=== PATIENT | male | born 1985 ===

== ENCOUNTER 2024-12-25 11:44 | Inpatient (IN) | payer OTHER, SELFPAY ==
[2024-12-25 11:46] VITALS: BP 123/87; PULSE 86; RESP 20; TEMP 36.7; O2SAT 97; BMI 45.4
--- NOTE | 2024-12-25 11:47 | ED_ITS ---
HPI - General Adult General Chief complaint: Psychiatric Symptoms Stated complaint: Crisis SI brought in with CHD Time Seen by Provider: 12/25/24 12:30 Source: patient Mode of arrival: ambulatory Limitations: no limitations History of Present Illness ED Provider: LUCIA FRAGOSO PA-C HPI narrative: 39-year-old male presents to the ED today for evaluation of auditory hallucinations x4 days. States these voices are screaming at him, telling him to harm himself. He endorses suicidal ideation with plan to hang himself. He currently resides at a sober living home. He states that he has been looking around the home for areas where he can hang himself. He did not attempt to hang himself prior to evaluation in the ED today. No other attempts at harming himself prior to today's evaluation. He reports multiple inpatient admissions for similar in the past. He has never been evaluated at our facility for this. Denies any illicit substance use or alcohol consumption. He states he has been sober for 4 months now. Denies visual or tactile hallucinations. Denies HI. Denies any physical complaints at present. Related Data Home Medications ?Medication ?Instructions ?Recorded ?Confirmed Haldol 20 mg PO BEDTIME 12/25/24 12/25/24 chlorpromazine 100 mg tablet 100 mg PO QID 12/25/24 12/25/24 clonazepam 0.5 mg tablet (Klonopin) 0.5 mg PO BID 12/25/24 12/25/24 clonidine 0.1 mg PO BID PRN Anxiety 12/25/24 12/25/24 gabapentin 800 mg tablet 800 mg TID 12/25/24 12/25/24 haloperidol 10 mg PO QAM 12/25/24 12/25/24 trazodone 100 mg tablet 100 mg PO BEDTIME 12/25/24 12/25/24 buprenorphine 8 mg-naloxone 2 mg 1 film buccal BID 12/26/24 12/26/24 sublingual film (Suboxone) bupropion HCl 300 mg 24 hr tablet, 300 mg PO QAM 12/26/24 12/26/24 extended release (Wellbutrin XL) Allergies Allergy/AdvReac Type Severity Reaction Status Date / Time fish derived [fish] Allergy Unknown Verified 12/25/24 14:08 Review of Systems 2 Review of Systems: Yes all other systems are reviewed and are negative COUNTS INCLUDE 234 BEDS AT THE [facility] Past Medical History Attestation statement: The following information was validated with the patient. Source: old records reviewed and nursing notes reviewed Social History Social History Household Members: None Housing: Apartment Do you presently have visiting nurse or other home services: No Patient Tobacco Use Status: Current everyday Tobacco user Tobacco use type: Cigarette Cigarette Packs Per Day: 1.5 Cigarettes Per Day: 30.0 Smoked in Last 30 Days: Yes e-Cigarette/Vaping Use: Never Used Patient Interested in Nicotine Replacement: Yes Patient Given Instructions on How to Stop Smoking: Yes Date Education Initiated: 12/26/24 Second Hand Smoke Exposure: No Use of substances other than those prescribed or required for medical reasons: No Currently Displaying Signs/Symptoms of Drug Intoxication Withdrawal: No Have you been hit, kicked, punched, or otherwise hurt by someone within the past year? If so, by whom?: No Do you feel safe in your current relationship?: No Current Relationship Is there a partner from a previous relationship who is making you feel unsafe now?: No Advance Directives: No Advance Directives Information Provided: No Do you have thoughts of harming others: None Do you have a plan to hurt others: No Plan Recently lost weight without trying: No How much weight loss: Not applicable Eating poorly because of decreased appetite: No Nutrition screen score: 0 Nutrition Risks: No Nutritional Risk Poor oral hygiene: No service: No Sexual orientation: Don't Know Physical Exam ED Vital Signs: Vital Signs - 24 hr 12/26/24 06:17 Temperature 98.0 F Pulse Rate 50 Respiratory Rate 16 Blood Pressure 140/83 H Pulse Oximetry 100 Oxygen Delivery Method Room Air BMI result Body Mass Index 45.4 Vital signs stable General: well appearing, in no acute distress. Skin: Warm, dry, intact. No rashes or lesions. Head: Normocephalic, atraumatic. EENT: Hearing is intact b/l. Conjunctiva clear. constricted pupils bilaterally. EOM intact. Moist mucous membranes. Multiple missing teeth, dental caries Cardiac: Chest wall symmetric. RRR Lungs: Normal respiratory effort without accessory muscle use. CTA bilaterally Abdomen: Soft, non-tender, non-distended. No rebound tenderness or guarding Back: No midline spinous or paraspinal tenderness. No step off deformity. Ext: Upper and lower extremities atraumatic, without tenderness, deformity, swelling or erythema Neuro: AOx3. Normal speech. CN 2-12 grossly intact. Ambulating with steady gait Course Course Course Narrative: RME performed by Jennifer Balderas PA-C. Patient is a 39 year old assigned male at presenting to the emergency department with suicidal ideation. Patient states he has thoughts of harming himself and has attempted to do so over the last 4 days but none of them worked. Patient refuses to elaborate on attempts.. Detailed physical exam and review of systems are deferred to the experimental mechanic electrical. EKG and labs ordered. data entry specialist made aware of patient. Reevaluation(s) Reevaluation #1: 1445 -- CBC without leukocytosis or left shift. No anemia. H&H stable. Chemistry without acute electrolyte abnormality requiring intervention. No FAB. Liver function WNL. Urine without infection. Urine toxicology positive for Suboxone. Otherwise negative. Undetectable salicylates, acetaminophen ethanol. Negative COVID. EKG showing normal sinus rhythm, no acute ischemic changes or ST elevations. > patient is medically cleared at this time. Placed in physician observation pending care team and disposition. > requesting something for anxiety. 1 mg Ativan ordered. Reevaluation #2: 12/26/2024 DR. Chew's Progress note: AAO x3 care team input is appreciated, VSS, no issue overnight by nursing, bed search is underway. Time: 09:38 Reevaluation #3: Discontinue physician observation, admitted to psych. Time: 14:41 Medications Administered Generic Name Dose Route Start Last Admin Trade Name Wellington PRN Reason Stop Dose Admin Buprenorphine/Naloxone 1 film 12/26/24 17:00 12/28/24 08:36 Buprenorphine/Naloxone 8/2 Mg Film SUBLINGUAL 1 film BID@0900,1700 JOHN Administration Bupropion HCl 300 mg 12/26/24 09:00 12/28/24 08:36 Bupropion Hcl Xl 300 Mg Tab.Er.24h PO 300 mg DAILY JOHN Administration Chlorpromazine HCl 100 mg 12/25/24 21:00 12/28/24 08:36 Chlorpromazine Hcl 100 Mg Tablet PO 100 mg QID JOHN Administration Clonazepam 0.5 mg 12/26/24 17:00 12/28/24 08:36 Clonazepam 0.5 Mg Tablet PO 0.5 mg BID@0900,1700 JOHN Administration Gabapentin 800 mg 12/25/24 21:00 12/28/24 08:35 Gabapentin 400 Mg Capsule PO 800 mg TID JOHN Administration Haloperidol 20 mg 12/25/24 21:00 12/27/24 20:38 Haloperidol 5 Mg Tablet PO 20 mg BEDTIME JOHN Administration Haloperidol 10 mg 12/26/24 09:00 12/28/24 08:36 Haloperidol 5 Mg Tablet PO 10 mg DAILY JOHN Administration Trazodone HCl 100 mg 12/25/24 21:00 12/27/24 20:38 Trazodone Hcl 100 Mg Tablet PO 100 mg BEDTIME JOHN Administration Discontinued Medications Generic Name Dose Route Start Last Admin Trade Name Stuq PRN Reason Stop Dose Admin Buprenorphine/Naloxone 1 film 12/25/24 21:00 12/26/24 09:09 Buprenorphine/Naloxone 8/2 Mg Film SUBLINGUAL 1 film BID JOHN Administration Clonazepam 0.5 mg 12/25/24 21:00 12/26/24 09:10 Clonazepam 0.5 Mg Tablet PO 0.5 mg BID JOHN Administration Lorazepam 1 mg 12/25/24 13:16 12/25/24 13:28 Lorazepam 1 Mg Tablet PO 12/25/24 13:17 1 mg ONCE ONE Administration Nicotine Polacrilex 2 mg 12/26/24 10:46 12/26/24 10:54 Nicotine Polacrilex 2 Mg Gum BUCCAL 2 mg Q2H PRN Administration Nicotine Cravings Medical Decision Making Medical Decision Making [facility] Narrative: 39-year-old male presents to the ED today for evaluation of auditory hallucinations x4 days. Differential diagnosis includes anemia, electrolyte abnormality, mood disorder, anxiety, depression, SI, polysubstance abuse Presentation not consistent with acute organic causes to include delirium, dementia or drug induced disorders (acute ingestions or withdrawal; no evidence of toxidrome).? Given the H&P, I suspect this patient is suicidal and will require observation. Will consult care team to evaluate the patient. Will also obtain labs for medical clearance. Plan: labs, EKG, ASA/APAP levels, ETOH level, UDS, care team consultation, reassessment Differential Diagnosis Differential Diagnoses: The differential diagnosis associated with the presentation includes as above. Lab Data [facility] Lab Attestation statement: I reviewed the patient's lab results. As above 05/19/25 12:27 12/25/24 12:27 Labs: Lab Results 12/25/24 12/25/24 Range/Units 12:27 13:01 WBC 5.5 (4.8-10.8) X10*3/uL RBC 4.60 (4.60-5.80) X10*6/uL Hgb 14.7 (14.0-18.0) g/dl Hct 41.2 L (42.0-52.0) % MCV 89.6 (80.0-98.0) fL MCH 32.0 (27.0-33.0) pg MCHC 35.7 (31.0-36.0) g/dl RDW 11.9 (11.0-16.0) % Plt Count 141 L (160-400) X10*3/uL MPV 10.3 (9.4-12.4) fL Immature Gran % (Auto) 0.2 (0.0-0.4) % Neut % (Auto) 56.5 (45-73) % Lymph % (Auto) 29.4 (20-40) % [place] % (Auto) 9.9 (2-11) % Eos % (Auto) 3.1 (0-4) % Baso % (Auto) 0.9 (0-2) % Lymph # (Auto) 1.6 (1.2-4.9) X10*3/uL [place] # (Auto) 0.5 (0.1-1.2) X10*3/uL Eos # (Auto) 0.2 (0.0-0.4) X10*3/uL Baso # (Auto) 0.1 (0.0-0.2) X10*3/uL Abs Immat Gran (auto) 0.01 (0.00-0.03) X10*3/uL Absolute Neuts (auto) 3.1 (2.0-8.3) x10*3/uL Absolute Nucleated RBC 0.000 (0.0-0.012) X10*3/uL Nucleated RBC % (auto) 0.0 (0.0-0.2) /100WBC Sodium 134 L (135-145) mmol/L Potassium 4.6 (3.3-5.1) mmol/L Chloride 101 (96-108) mmol/L Carbon Dioxide 27 (22-29) mmol/L Anion Gap 11 L (12-20) BUN 8 L (9-16) mg/dL Creatinine 0.75 (0.5-1.4) mg/dL Estim Creat Clear Calc 156.2 Estimated GFR > 60 Random Glucose 94 (60-115) mg/dL Calcium 8.9 (8.4-10.2) mg/dL Total Bilirubin 0.4 (0.0-1.0) mg/dL AST 43 H (5-37) U/L ALT 37 (0-40) U/L Alkaline Phosphatase 69 (39-117) U/L Total Protein 6.5 (6.5-8.0) g/dL Albumin 3.8 (3.5-5.0) g/dL Urine Color Yellow Urine Appearance Clear Urine pH 7.0 (5.0-9.0) Ur Specific [place] <= 1.005 (1.005-1.025) Urine Protein Negative (Neg-Trace) mg/dL Urine Glucose (UA) Negative (Negative) mg/dL Urine Ketones Negative (Negative) mg/dL Urine Blood Negative (Negative) Urine Nitrite Negative (Negative) Ur Leukocyte Esterase Negative (Negative) Urine RBC 0-2 (0-2) /HPF Urine WBC 0-5 (0-5) /HPF Ur Squamous Epith Cells 0-2 (0-2) /HPF Urine Bacteria None Seen (None Seen) Hyaline Casts 0-2 (0-2) /LPF Salicylates < 5.0 L (15-30) mg/dL Urine Opiates Screen Not Detected (Not Detect) Ur Buprenorphine Scrn Positive H (Not Detect) ng/mL Ur Oxycodone Screen Not Detected (Not Detect) ng/mL Urine Methadone Screen Not Detected (Not Detect) ng/mL Urine Fentanyl Screen Not Detected (Not Detect) Acetaminophen < 3 (<30) mcg/mL Ur Barbiturates Screen Not Detected (Not Detect) Ur Phencyclidine Scrn Not Detected (Not Detect) Ur Amphetamines Screen Not Detected (Not Detect) U Benzodiazepines Scrn Not Detected (Not Detect) Urine Cocaine Screen Not Detected (Not Detect) U Marijuana (THC) Screen Not Detected (Not Detect) Ethyl Alcohol < 10 mg/dL COVID-19 (SIDRA) Invalid Negative (Negative) COVID-19 Clin Com See Note See Note Independent Interpretation I performed an independent interpretation of an: EKG Interpretation: EKG showing normal sinus rhythm, rate of 64 beats per minute, QT 404, QTC 416, no acute ischemic changes or ST elevations Chronic Conditions Patient?s care impacted by: Other Social Determinants Patient?s care significantly limited by Social Determinants of Health including: Alcoholism and drug addiction in family and Other Social Determinant of Health Critical Care Time Critical Care Time Critical Care Time: No Discharge Plan Discharge Clinical Impression: Suicidal ideation Patient Disposition: Admitted As Inpatient Interventions: Admission Worksheet (ED) Last Done: 12/26/24 14:58 Discharge Date/Time: 12/26/24 15:00
--- NOTE | 2024-12-25 11:50 | ECG_ITS ---
Test Reason : SI Blood Pressure : */* mmHG Vent. Rate : 64 BPM Atrial Rate : 64 BPM P-R Int : 144 ms QRS Dur : 96 ms QT Int : 404 ms P-R-T Axes : 61 37 40 degrees QTcB Int : 416 ms Normal sinus rhythm Normal ECG No previous ECGs available Referred By: Jennifer Balderas Electronically Signed By: Chad Garcia
[2024-12-25 12:33] LABS: MANUAL DIFF FLAG NO
[2024-12-25 12:42] LABS: Basophils Absolute Auto 0.1 X10*3/uL (0.0-0.2); Basophils Percent Auto 0.9 % (0-2); Eosinophils Absolute Auto 0.2 X10*3/uL (0.0-0.4); Eosinophils Percent Auto 3.1 % (0-4); Hematocrit 41.2 % (42.0-52.0); Hemoglobin 14.7 g/dl (14.0-18.0); Imm Gran Abs Auto 0.01 X10*3/uL (0.00-0.03); Imm Gran Pct Auto 0.2 % (0.0-0.4); Lymphocytes Absolute Auto 1.6 X10*3/uL (1.2-4.9); Lymphocytes Percent Auto 29.4 % (20-40); Mean Corpuscular HGB Conc 35.7 g/dl (31.0-36.0); Mean Corpuscular Volume 89.6 fL (80.0-98.0); Mean Platelet Volume 10.3 fL (9.4-12.4); Monocytes Absolute Auto 0.5 X10*3/uL (0.1-1.2); Monocytes Percent Auto 9.9 % (2-11); Neutrophils Absolute Auto 3.1 x10*3/uL (2.0-8.3); Neutrophils Percent Auto 56.5 % (45-73); Platelet Count 141 X10*3/uL (160-400); Red Cell Distribution Width 11.9 % (11.0-16.0); White Blood Count 5.5 X10*3/uL (4.8-10.8)
--- NOTE | 2024-12-25 12:53 | PC.NURSE ---
Recollect needed on COVID-19 Hernandez swab, lab states I tried twice, and it says invalid result. This RN notified by lab at 12:53pm. Recollect to be done & sent.
[2024-12-25 12:54] LABS: Acetaminophen LAB < 3 mcg/mL (<30); Alanine Aminotransferase 37 U/L (0-40); Albumin Level 3.8 g/dL (3.5-5.0); Alkaline Phosphatase 69 U/L (39-117); Anion Gap 11 (12-20); Aspartate Amino Transferase 43 U/L (5-37); Bilirubin Total 0.4 mg/dL (0.0-1.0); Blood Urea Nitrogen 8 mg/dL (9-16); Calcium 8.9 mg/dL (8.4-10.2); Carbon Dioxide 27 mmol/L (22-29); Chloride 101 mmol/L (96-108); Creatinine Clr Calc Pharmacy 156.2; Estimated Glomerular Filt Rate > 60; Ethanol < 10 mg/dL; Glucose Random 94 mg/dL (60-115); Potassium 4.6 mmol/L (3.3-5.1); Salicylate < 5.0 mg/dL (15-30); Sodium 134 mmol/L (135-145); Total Protein 6.5 g/dL (6.5-8.0)
[2024-12-25 12:55] LABS: COVID-19 Test Invalid (Negative); IDNOW Serial# 55D5AD1C
--- NOTE | 2024-12-25 13:15 | PC.NURSE ---
Called inpatient kitchen. service porter department to bring a safety tray (regular diet) to ED. Order is entered.
[2024-12-25 13:16] LABS: Appearance Urine Clear; Color Urine Yellow; Glucose Urine UA Negative (Negative); Leukocyte Esterase Urine Negative (Negative); Nitrite Urine Negative (Negative); Specific Gravity - Urine <= 1.005 (1.005-1.025); Urine Blood Negative (Negative); Urine Ketones Negative (Negative); Urine Protein Negative (Neg-Trace)
[2024-12-25 13:19] LABS: COVID-19 Test Negative (Negative); IDNOW Serial# 58CA691E
[2024-12-25 13:21] LABS: Bacteria Urine None Seen (None Seen); Hyaline Casts Urine 0-2 /LPF (0-2); RBC Urine 0-2 /HPF (0-2); Squamous Epithelial Cell Urine 0-2 /HPF (0-2); WBC Urine 0-5 /HPF (0-5)
[2024-12-25 13:25] LABS: Amphetamine Screen Urine Not Detected (Not Detect); Barbiturates, Urine Not Detected (Not Detect); Benzodiazepines Screen Urine Not Detected (Not Detect); Buprenorphine Scr Positive (Not Detect); Cannabinoid Screen Urine Not Detected (Not Detect); Cocaine Screen Urine Not Detected (Not Detect); Fentanyl, urine Not Detected (Not Detect); Methadone Screen, Urine Not Detected (Not Detect); Opiate Screen Urine Not Detected (Not Detect); Oxycodone Screen Urine Not Detected (Not Detect); Phencyclidine Screen Urine Not Detected (Not Detect)
[2024-12-25] MEDS: LORazepam 1 MG TABLET PO (13:28)
--- NOTE | 2024-12-25 14:08 | PC.NURSE ---
Stated that he has a fish allergy. Was given meal tray with fish. Kitchen called.
[2024-12-25 15:14] VITALS: BP 143/78; PULSE 75; RESP 13; TEMP 36.6; O2SAT 95
[2024-12-25] MEDS: HaloperidoL 5 MG TABLET 20 MG PO (21:55)
[2024-12-25] MEDS: Buprenorphine/Naloxone 8/2 mg FILM 1 FILM SUBLINGUAL (21:55)
[2024-12-25] MEDS: traZODone HCL 100 MG TABLET PO (21:56)
[2024-12-25] MEDS: Gabapentin 400 MG CAPSULE 800 MG PO (21:56)
[2024-12-25] MEDS: chlorproMAZINE HCl 100 MG TABLET PO (21:56)
[2024-12-25] MEDS: clonazePAM 0.5 MG TABLET PO (21:56)
[2024-12-26 06:17] VITALS: BP 140/83; PULSE 50; RESP 16; TEMP 36.7; O2SAT 100
[2024-12-26] MEDS: buPROPion HCl XL 300 MG TAB.ER.24H PO (09:09)
[2024-12-26] MEDS: Gabapentin 400 MG CAPSULE 800 MG PO ×3 (09:09→21:28)
[2024-12-26] MEDS: HaloperidoL 5 MG TABLET 10 MG PO (09:09)
[2024-12-26] MEDS: Buprenorphine/Naloxone 8/2 mg FILM 1 FILM SUBLINGUAL ×2 (09:09→17:19)
[2024-12-26] MEDS: chlorproMAZINE HCl 100 MG TABLET PO ×4 (09:09→21:27)
[2024-12-26] MEDS: clonazePAM 0.5 MG TABLET PO ×2 (09:10→17:17)
--- NOTE | 2024-12-26 10:31 | PHA.MEDREC ---
Pharmacy Consult ? Medication Reconciliation Pharmacy has completed the medication reconciliation. Spoke to pharmacist Ivanna at [facility] in [place] ([phone]) to confirm medication list. Per Ivanna, bupropion is XL 300 mg daily.
[2024-12-26] MEDS: Nicotine Polacrilex 2 MG GUM BUCCAL (10:54)
[2024-12-26 15:21] VITALS: BP 133/62; PULSE 76; RESP 16; TEMP 36.4; O2SAT 98
[2024-12-26 15:22] VITALS: BMI 44.1
--- NOTE | 2024-12-26 17:26 | PC.ADMIT ---
Lamberto was admitted to on a CV for treatment of MDD with psychotic features. Prior to admission, he reports an increase in depression over the last 2 weeks and the worse being the last 4 days. He reports while staying at [facility], he was attempting to find places where he could hang himself. He reports continued CAH telling him to kill himself and screaming at him. He does endorse SI but no plan or intent at this time. He verbalizes being able to come to staff if plan or intent occurs. He denies HI/VH at this time. He is calm, pleasant and cooperative during admission assessment. His mood is sad and his affect is congruent with his mood. His thoughts are clear and linear, his focus is good. He reports poor sleep and appetite due to depression but he has not lost any weight. He denies current substance use and his tox screen was suboxone which he is prescribed. He reports a history of opiate use and has been sober for 16 years and also endorses a history of alcohol abuse from which he has been sober for 5 months. He takes Suboxone and reports this is helpful for his cravings. He denies any physical or medical issues at this time. His skin check revealed a large healed wound on his abdomen which he reports was self inflicted as a suicide attempt that he had received stitches for and his 3rd and 4th toes being fused on his left foot. He reports a long standing history of inpatient admissions but in the [place] area and never around here. He was placed on 15 minute checks for safety.
[2024-12-26 20:00] VITALS: BP 129/60; PULSE 69; RESP 18; TEMP 38.1; O2SAT 94
[2024-12-26] MEDS: traZODone HCL 100 MG TABLET PO (21:27)
[2024-12-26] MEDS: HaloperidoL 5 MG TABLET 20 MG PO (21:28)
[2024-12-27 07:58] VITALS: BP 132/74; PULSE 60; RESP 16; TEMP 36.5; O2SAT 94
[2024-12-27] MEDS: Gabapentin 400 MG CAPSULE 800 MG PO ×3 (08:28→20:38)
[2024-12-27] MEDS: chlorproMAZINE HCl 100 MG TABLET PO ×4 (08:28→20:38)
[2024-12-27] MEDS: clonazePAM 0.5 MG TABLET PO ×2 (08:28→17:07)
[2024-12-27] MEDS: HaloperidoL 5 MG TABLET 10 MG PO (08:29)
[2024-12-27] MEDS: buPROPion HCl XL 300 MG TAB.ER.24H PO (08:29)
[2024-12-27] MEDS: Buprenorphine/Naloxone 8/2 mg FILM 1 FILM SUBLINGUAL ×2 (08:29→17:07)
--- NOTE | 2024-12-27 09:27 | P.HPPS_ITS ---
HPI Date of Service: 12/27/24 Chief Complaint: Psychosis HPI Narrative: per CARE team zion, pt self-presented with CHD worker c/o worsening depression now with SI and for the past several days CAH screaming at him to kill himself. plan to hang self. has been at [facility] for the past 2.5 months. staff report he has been sleeping a lot and c/o AH. on interview with MD, pt reports his AH have improved quite substantially, now low and light, from screaming PRINTING MACHINIST. last SI last NOC. meds reviewed, modified to pt's preference. continue home meds. pt just feels he needs a bit of time. not sure if he wants to return to [facility], 2.5 months into a 6 month stay, versus return to [place], where he lives. he will reflect while stabilizing inpatient. psych Hx reviewed. substantial trauma Hx noted, as well as h/o SIB. Past Psychiatric History: hosps: reports about 10 hosps SA: told CARE team he has tried to suicide a few times. 2023 via OD, 2022 via slitting his abd, requiring melanie. SIB: reports h/o cutting from 10 yo. MRE about 1 yr ago. outpt: at [facility] so seeing addi for meds right now. from [place], there he [facility] to [facility]. Medical Evaluation Reviewed: Yes PMFSH Family History: father - bipolar Social History: born in [place], [place], raised in [place], [place], bby mother and father. reports mother sickly with DM and passed when he was 21 yo. Substance History: nicotine - 1.5 ppd alcohol - h/o use disorder, sober 5 months. opioid - h/o use disorder, sober 16 years. on suboxone. utox BUPE POS. Trauma History: reports phys, sex, emo trauma from childhood Diagnostics Vital Signs (24Hr): Vital Signs - 24 hr 12/26/24 15:21 12/26/24 20:00 12/27/24 07:58 Temperature 97.6 F 100.5 F H 97.7 F Pulse Rate 76 69 60 Respiratory Rate 16 18 16 Blood Pressure 133/62 129/60 132/74 Pulse Oximetry 98 94 94 Oxygen Delivery Method Room Air Room Air Room Air BMI result Body Mass Index 44.1 Labs 12/25/24 12:27 12/25/24 12:27 Labs: Laboratory Results - last 48 hr 12/25/24 12/25/24 12:27 13:01 WBC 5.5 RBC 4.60 Hgb 14.7 Hct 41.2 L MCV 89.6 MCH 32.0 MCHC 35.7 RDW 11.9 Plt Count 141 L MPV 10.3 Immature Gran % (Auto) 0.2 Neut % (Auto) 56.5 Lymph % (Auto) 29.4 [place] % (Auto) 9.9 Eos % (Auto) 3.1 Baso % (Auto) 0.9 Lymph # (Auto) 1.6 [place] # (Auto) 0.5 Eos # (Auto) 0.2 Baso # (Auto) 0.1 Abs Immat Gran (auto) 0.01 Absolute Neuts (auto) 3.1 Absolute Nucleated RBC 0.000 Nucleated RBC % (auto) 0.0 Sodium 134 L Potassium 4.6 Chloride 101 Carbon Dioxide 27 Anion Gap 11 L BUN 8 L Creatinine 0.75 Estim Creat Clear Calc 156.2 Estimated GFR > 60 Random Glucose 94 Calcium 8.9 Total Bilirubin 0.4 AST 43 H ALT 37 Alkaline Phosphatase 69 Total Protein 6.5 Albumin 3.8 Urine Color Yellow Urine Appearance Clear Urine pH 7.0 Ur Specific [place] <= 1.005 Urine Protein Negative Urine Glucose (UA) Negative Urine Ketones Negative Urine Blood Negative Urine Nitrite Negative Ur Leukocyte Esterase Negative Urine RBC 0-2 Urine WBC 0-5 Ur Squamous Epith Cells 0-2 Urine Bacteria None Seen Hyaline Casts 0-2 Salicylates < 5.0 L Urine Opiates Screen Not Detected Ur Buprenorphine Scrn Positive H Ur Oxycodone Screen Not Detected Urine Methadone Screen Not Detected Urine Fentanyl Screen Not Detected Acetaminophen < 3 Ur Barbiturates Screen Not Detected Ur Phencyclidine Scrn Not Detected Ur Amphetamines Screen Not Detected U Benzodiazepines Scrn Not Detected Urine Cocaine Screen Not Detected U Marijuana (THC) Screen Not Detected Ethyl Alcohol < 10 COVID-19 (SIDRA) Invalid Negative COVID-19 Clin Com See Note See Note Meds/Allergies Meds Home Medications ?Medication ?Instructions ?Recorded ?Confirmed ?Type Haldol 20 mg PO BEDTIME 12/25/24 12/25/24 History chlorpromazine 100 mg tablet 100 mg PO QID 12/25/24 12/25/24 History clonazepam 0.5 mg tablet (Klonopin) 0.5 mg PO BID 12/25/24 12/25/24 History clonidine 0.1 mg PO BID PRN Anxiety 12/25/24 12/25/24 History gabapentin 800 mg tablet 800 mg TID 12/25/24 12/25/24 History haloperidol 10 mg PO QAM 12/25/24 12/25/24 History trazodone 100 mg tablet 100 mg PO BEDTIME 12/25/24 12/25/24 History buprenorphine 8 mg-naloxone 2 mg 1 film buccal BID 12/26/24 12/26/24 History sublingual film (Suboxone) bupropion HCl 300 mg 24 hr tablet, 300 mg PO QAM 12/26/24 12/26/24 History extended release (Wellbutrin XL) Allergies Allergies Allergy/AdvReac Type Severity Reaction Status Date / Time fish derived [fish] Allergy Unknown Verified 12/25/24 14:08 Mental Status Exam Mental Status Exam Narrative: obese, heaqvily tattooed. adequately groomed, in [facility]. cooperative. no PMA/PMR. speech nml rate, decr amount, decr loudness, nml latency. thoughts linear and logical. affect constricted, normo-intense, non-labile. mood irritable. anxious. report SI last NOC. denies SIBI/HI/VH. reports AH now very low. very light. Assessment & Plan Assessment & Plan (1) Psychotic disorder: Status: Acute Code(s): F29 - Unspecified psychosis not due to a substance or known physiological condition (2) Opioid use disorder, severe, on maintenance therapy: Status: Acute Code(s): F11.20 - Opioid dependence, uncomplicated (3) Alcohol use disorder, severe, in early remission: Status: Acute Code(s): F10.21 - Alcohol dependence, in remission Plan continue home meds allow for some time to consider options. discharge back to [facility] versus [place] once stable. Patient educated on: diagnosis, medication risk/benefits and substance abuse Reason for continued inpatient stay Substantial Risk for: harm to self and inability to function Statement Statement: I have reviewed the history and physical and performed a pertinent examination on my patient. No changes have occurred unless specified. If the History and Physical was not performed prior to admission, the Hospitalist's service will be consulted for completing the admission physical. Time Spent With Patient Time: Total time managing care of this patient today __55__ minutes.
[2024-12-27 20:00] VITALS: BP 112/54; PULSE 71; RESP 16; TEMP 36.4; O2SAT 95
[2024-12-27] MEDS: traZODone HCL 100 MG TABLET PO (20:38)
[2024-12-27] MEDS: HaloperidoL 5 MG TABLET 20 MG PO (20:38)
[2024-12-28 07:00] VITALS: BMI 44.3
[2024-12-28 08:35] VITALS: BP 142/72; PULSE 94; RESP 18; TEMP 36.3; O2SAT 99
[2024-12-28] MEDS: Gabapentin 400 MG CAPSULE 800 MG PO ×3 (08:35→21:09)
[2024-12-28] MEDS: HaloperidoL 5 MG TABLET 10 MG PO (08:36)
[2024-12-28] MEDS: chlorproMAZINE HCl 100 MG TABLET PO ×4 (08:36→21:08)
[2024-12-28] MEDS: Buprenorphine/Naloxone 8/2 mg FILM 1 FILM SUBLINGUAL ×2 (08:36→17:13)
[2024-12-28] MEDS: buPROPion HCl XL 300 MG TAB.ER.24H PO (08:36)
[2024-12-28] MEDS: clonazePAM 0.5 MG TABLET PO ×2 (08:36→17:12)
--- NOTE | 2024-12-28 13:47 | P.PNPSI_ITS ---
Subjective Subjective Date of Service: 12/28/24 Reason For Visit: Psychosis Interim History: calm, cooperative. reports feeling much better. c/o AH asking to switch from haldol. suggests only realistic option then would be clozaril but ultimately discourages that as pt appears to be doing much better and R/B profile of clozaril is not in his favor at present. pt accedes. per staff, denies SI. +AH. +meds. slept 8 hours. not attending groups. Mental Status Exam Mental Status Exam Narrative: obese, heaqvily tattooed. adequately groomed, in [facility]. cooperative. no PMA/PMR. speech nml rate, decr amount, decr loudness, nml latency. thoughts linear and logical. affect constricted, normo-intense, non-labile. mood improved. no SI/HI/AVH expressed. Diagnostics Vital Signs (24Hr): Vital Signs - 24 hr 12/27/24 20:00 12/28/24 08:35 Temperature 97.6 F 97.4 F Pulse Rate 71 94 Respiratory Rate 16 18 Blood Pressure 112/54 L 142/72 H Pulse Oximetry 95 99 Oxygen Delivery Method Room Air Room Air BMI result Body Mass Index 44.3 Labs 12/25/24 12:27 12/25/24 12:27 Medications Medications Current Medications Acetaminophen (Acetaminophen 325 Mg Tablet) 650 mg PO Q6H PRN PRN Reason: Headache/Pain, Scale 1-10 Al Hydroxide/Mg Hydroxide (Magnesium Hydrox/Alum Hydrox 30 Ml Oral.Susp) 30 ml PO Q6H PRN PRN Reason: Heartburn/Nausea Buprenorphine/Naloxone (Buprenorphine/Naloxone 8/2 Mg Film) 1 film SUBLINGUAL BID@0900,1700 [facility] Last Admin: 12/28/24 08:36 Dose: 1 film Bupropion HCl (Bupropion Hcl Xl 300 Mg Tab.Er.24h) 300 mg PO DAILY [facility] Last Admin: 12/28/24 08:36 Dose: 300 mg Chlorpromazine HCl (Chlorpromazine Hcl 100 Mg Tablet) 100 mg PO QID [facility] Last Admin: 12/28/24 13:17 Dose: 100 mg Clonazepam (Clonazepam 0.5 Mg Tablet) 0.5 mg PO BID@0900,1700 [facility] Last Admin: 12/28/24 08:36 Dose: 0.5 mg Clonidine HCl (Clonidine Hcl 0.1 Mg Tablet) 0.1 mg PO BID PRN PRN Reason: Anxiety Gabapentin (Gabapentin 400 Mg Capsule) 800 mg PO TID [facility] Last Admin: 12/28/24 08:35 Dose: 800 mg Haloperidol (Haloperidol 5 Mg Tablet) 20 mg PO BEDTIME [facility] Last Admin: 12/27/24 20:38 Dose: 20 mg Haloperidol (Haloperidol 5 Mg Tablet) 10 mg PO DAILY [facility] Last Admin: 12/28/24 08:36 Dose: 10 mg Hydroxyzine HCl (Hydroxyzine Hcl 25 Mg Tablet) 25 mg PO Q6H PRN PRN Reason: mild anxiety Magnesium Hydroxide (Milk Of Magnesia 30 Ml Oral.Susp) 30 ml PO DAILY PRN PRN Reason: Constipation Nicotine Polacrilex (Nicotine Polacrilex 2 Mg Gum) 4 mg BUCCAL Q2H PRN PRN Reason: Nicotine Cravings Trazodone HCl (Trazodone Hcl 100 Mg Tablet) 100 mg PO BEDTIME [facility] Last Admin: 12/27/24 20:38 Dose: 100 mg Trazodone HCl (Trazodone Hcl 50 Mg Tablet) 50 mg PO BEDTIME MRX1 PRN PRN Reason: Insomnia Allergies Allergies Allergy/AdvReac Type Severity Reaction Status Date / Time fish derived [fish] Allergy Unknown Verified 12/25/24 14:08 Assessment & Plan Assessment & Plan (1) Psychotic disorder: Status: Acute Code(s): F29 - Unspecified psychosis not due to a substance or known physiological condition (2) Opioid use disorder, severe, on maintenance therapy: Status: Acute Code(s): F11.20 - Opioid dependence, uncomplicated (3) Alcohol use disorder, severe, in early remission: Status: Acute Code(s): F10.21 - Alcohol dependence, in remission Plan 12/27: continue home meds. allow for some time to consider options. discharge back to [facility] versus [place] once stable. 12/28: feeling much better. endorsing ongoing AH. denies SI. considering return to [facility]. continue current medications. Reason for continued inpatient stay Substantial Risk for: harm to self and inability to function Time Spent With Patient Time: Total time managing care of this patient today __25__ minutes.
[2024-12-28 20:00] VITALS: BP 125/82; PULSE 75; RESP 20; TEMP 36.8; O2SAT 90
[2024-12-28] MEDS: HaloperidoL 5 MG TABLET 20 MG PO (21:08)
[2024-12-28 21:09] VITALS: BP 125/82
[2024-12-28] MEDS: traZODone HCL 100 MG TABLET PO (21:09)
[2024-12-28] MEDS: cloNIDine HCL 0.1 MG TABLET PO (21:09)
[2024-12-28] MEDS: traZODone HCL 50 MG TABLET PO (21:10)
[2024-12-28] MEDS: Nicotine Polacrilex 2 MG GUM 4 MG BUCCAL (21:21)
[2024-12-29 07:55] VITALS: BP 136/72; PULSE 68; RESP 18; TEMP 36.8; O2SAT 99
[2024-12-29 08:00] VITALS: BP 136/72; PULSE 68; RESP 18; TEMP 36.8; O2SAT 98
[2024-12-29] MEDS: buPROPion HCl XL 300 MG TAB.ER.24H PO (08:01)
[2024-12-29] MEDS: Gabapentin 400 MG CAPSULE 800 MG PO ×3 (08:01→20:59)
[2024-12-29] MEDS: chlorproMAZINE HCl 100 MG TABLET PO ×4 (08:01→20:59)
[2024-12-29] MEDS: Buprenorphine/Naloxone 8/2 mg FILM 1 FILM SUBLINGUAL ×2 (08:02→18:03)
[2024-12-29] MEDS: clonazePAM 0.5 MG TABLET PO ×2 (08:02→18:04)
[2024-12-29] MEDS: HaloperidoL 5 MG TABLET 10 MG PO (08:02)
[2024-12-29] MEDS: Nicotine Polacrilex 2 MG GUM 4 MG BUCCAL ×2 (08:54→21:22)
[2024-12-29] MEDS: buPROPion HCl XL 150 MG TAB.ER.24H PO (11:50)
--- NOTE | 2024-12-29 13:30 | P.PNPSI_ITS ---
Subjective Subjective Date of Service: 12/29/24 Reason For Visit: Psychosis Interim History: c/o depressed mood, states he did well on wellbutrin 450 daily. MD agrees to increase dosing as of today. pt requesting discharge wednesday, which is arranged. per staff, dep 5 anx 6. taking meds. no SI. in bed all shift. +AH days. slept 9+ hours. Mental Status Exam Mental Status Exam Narrative: obese, heaqvily tattooed. adequately groomed, in [facility]. cooperative. no PMA/PMR. speech nml rate, decr amount, decr loudness, nml latency. thoughts linear and logical. affect constricted, normo-intense, non-labile. mood improved but depressed. no SI/HI/AVH expressed. Diagnostics Vital Signs (24Hr): Vital Signs - 24 hr 12/28/24 20:00 12/28/24 21:09 12/29/24 07:55 Temperature 98.2 F 98.2 F Pulse Rate 75 68 Respiratory Rate 20 18 Blood Pressure 125/82 125/82 136/72 Pulse Oximetry 90 L 99 Oxygen Delivery Method Room Air Room Air 12/29/24 08:00 Temperature 98.2 F Pulse Rate 68 Respiratory Rate 18 Blood Pressure 136/72 Pulse Oximetry 98 Oxygen Delivery Method Room Air BMI result Body Mass Index 44.3 Labs 12/25/24 12:27 12/25/24 12:27 Medications Medications Current Medications Acetaminophen (Acetaminophen 325 Mg Tablet) 650 mg PO Q6H PRN PRN Reason: Headache/Pain, Scale 1-10 Al Hydroxide/Mg Hydroxide (Magnesium Hydrox/Alum Hydrox 30 Ml Oral.Susp) 30 ml PO Q6H PRN PRN Reason: Heartburn/Nausea Buprenorphine/Naloxone (Buprenorphine/Naloxone 8/2 Mg Film) 1 film SUBLINGUAL BID@0900,1700 [facility] Last Admin: 12/29/24 08:02 Dose: 1 film Bupropion HCl (Bupropion Hcl Xl 150 Mg Tab.Er.24h) 450 mg PO DAILY [facility] Chlorpromazine HCl (Chlorpromazine Hcl 100 Mg Tablet) 100 mg PO QID [facility] Last Admin: 12/29/24 08:01 Dose: 100 mg Clonazepam (Clonazepam 0.5 Mg Tablet) 0.5 mg PO BID@0900,1700 [facility] Last Admin: 12/29/24 08:02 Dose: 0.5 mg Clonidine HCl (Clonidine Hcl 0.1 Mg Tablet) 0.1 mg PO BID PRN PRN Reason: Anxiety Last Admin: 12/28/24 21:09 Dose: 0.1 mg Gabapentin (Gabapentin 400 Mg Capsule) 800 mg PO TID [facility] Last Admin: 12/29/24 08:01 Dose: 800 mg Haloperidol (Haloperidol 5 Mg Tablet) 20 mg PO BEDTIME [facility] Last Admin: 12/28/24 21:08 Dose: 20 mg Haloperidol (Haloperidol 5 Mg Tablet) 10 mg PO DAILY [facility] Last Admin: 12/29/24 08:02 Dose: 10 mg Hydroxyzine HCl (Hydroxyzine Hcl 25 Mg Tablet) 25 mg PO Q6H PRN PRN Reason: mild anxiety Magnesium Hydroxide (Milk Of Magnesia 30 Ml Oral.Susp) 30 ml PO DAILY PRN PRN Reason: Constipation Nicotine Polacrilex (Nicotine Polacrilex 2 Mg Gum) 4 mg BUCCAL Q2H PRN PRN Reason: Nicotine Cravings Last Admin: 12/29/24 08:54 Dose: 4 mg Trazodone HCl (Trazodone Hcl 100 Mg Tablet) 100 mg PO BEDTIME [facility] Last Admin: 12/28/24 21:09 Dose: 100 mg Trazodone HCl (Trazodone Hcl 50 Mg Tablet) 50 mg PO BEDTIME MRX1 PRN PRN Reason: Insomnia Last Admin: 12/28/24 21:10 Dose: 50 mg Allergies Allergies Allergy/AdvReac Type Severity Reaction Status Date / Time fish derived [fish] Allergy Unknown Verified 12/25/24 14:08 Assessment & Plan Assessment & Plan (1) Psychotic disorder: Status: Acute Code(s): F29 - Unspecified psychosis not due to a substance or known physiological condition (2) Opioid use disorder, severe, on maintenance therapy: Status: Acute Code(s): F11.20 - Opioid dependence, uncomplicated (3) Alcohol use disorder, severe, in early remission: Status: Acute Code(s): F10.21 - Alcohol dependence, in remission Plan 12/27: continue home meds. allow for some time to consider options. discharge back to [facility] versus [place] once stable. 12/28: feeling much better. endorsing ongoing AH. denies SI. considering return to [facility]. continue current medications. 12/29: improved but depressed. increase wellbutrin to 450 mg daily at pt request. planning to discharge next wednesday back to [facility]. continue current mgmt otherwise. Reason for continued inpatient stay Substantial Risk for: inability to function and rapid decompensation Time Spent With Patient Time: Total time managing care of this patient today __25__ minutes.
[2024-12-29 19:53] VITALS: BP 116/55; PULSE 61; RESP 18; TEMP 36.6; O2SAT 93
[2024-12-29] MEDS: HaloperidoL 5 MG TABLET 20 MG PO (20:58)
[2024-12-29] MEDS: traZODone HCL 100 MG TABLET PO (20:58)
[2024-12-29] MEDS: traZODone HCL 50 MG TABLET PO (20:59)
[2024-12-30 08:00] VITALS: BP 132/68; PULSE 52; RESP 16; TEMP 36.5; O2SAT 95
[2024-12-30] MEDS: HaloperidoL 5 MG TABLET 10 MG PO (08:50)
[2024-12-30] MEDS: Gabapentin 400 MG CAPSULE 800 MG PO ×3 (08:50→21:19)
[2024-12-30] MEDS: Buprenorphine/Naloxone 8/2 mg FILM 1 FILM SUBLINGUAL ×2 (08:51→17:06)
[2024-12-30] MEDS: clonazePAM 0.5 MG TABLET PO ×2 (08:51→17:06)
[2024-12-30] MEDS: chlorproMAZINE HCl 100 MG TABLET PO ×4 (08:51→21:19)
[2024-12-30] MEDS: buPROPion HCl XL 150 MG TAB.ER.24H 450 MG PO (08:51)
[2024-12-30] MEDS: Nicotine Polacrilex 2 MG GUM 4 MG BUCCAL (10:26)
--- NOTE | 2024-12-30 15:24 | P.PNPSI_ITS ---
Subjective Subjective Date of Service: 12/30/24 Reason For Visit: Psychosis Subjective Notes: Conditional Voluntary Interim History: Keeping to self. Observed reading in sensory room. Patient reports he feels his anxiety and depression are the same . guarded. encouraged to attend groups. He reports sleeping well last night. denies SI/HI/VH/AH. Continue current tx plan. Medication Compliance: Yes Side effects from medications: No Attending Groups: No Mental Status Exam Mental Status Exam Patient Appearance: Appropriate Patient Orientation: Person, Place, Time and Situation Level of Consciousness: Awake Patient Behavior: Appropriate, Guarded and Good Eye Contact Mood Description: Calm Affect Description: Calm Ability to Follow Directions: Good Speech Pattern: Clear Memory Description: Intact Hallucinations: None Delusions: Not Present Thought Process: Intact Thought Content: positive for Intact Diagnostics Vital Signs (24Hr): Vital Signs - 24 hr 12/29/24 19:53 12/30/24 08:00 Temperature 97.8 F 97.7 F Pulse Rate 61 52 Respiratory Rate 18 16 Blood Pressure 116/55 L 132/68 Pulse Oximetry 93 95 Oxygen Delivery Method Room Air Room Air BMI result Body Mass Index 44.3 Labs 12/25/24 12:27 12/25/24 12:27 Medications Medications Current Medications Acetaminophen (Acetaminophen 325 Mg Tablet) 650 mg PO Q6H PRN PRN Reason: Headache/Pain, Scale 1-10 Al Hydroxide/Mg Hydroxide (Magnesium Hydrox/Alum Hydrox 30 Ml Oral.Susp) 30 ml PO Q6H PRN PRN Reason: Heartburn/Nausea Buprenorphine/Naloxone (Buprenorphine/Naloxone 8/2 Mg Film) 1 film SUBLINGUAL BID@0900,1700 [facility] Last Admin: 12/30/24 08:51 Dose: 1 film Bupropion HCl (Bupropion Hcl Xl 150 Mg Tab.Er.24h) 450 mg PO DAILY [facility] Last Admin: 12/30/24 08:51 Dose: 450 mg Chlorpromazine HCl (Chlorpromazine Hcl 100 Mg Tablet) 100 mg PO QID [facility] Last Admin: 12/30/24 12:52 Dose: 100 mg Clonazepam (Clonazepam 0.5 Mg Tablet) 0.5 mg PO BID@0900,1700 [facility] Last Admin: 12/30/24 08:51 Dose: 0.5 mg Clonidine HCl (Clonidine Hcl 0.1 Mg Tablet) 0.1 mg PO BID PRN PRN Reason: Anxiety Last Admin: 12/28/24 21:09 Dose: 0.1 mg Gabapentin (Gabapentin 400 Mg Capsule) 800 mg PO TID [facility] Last Admin: 12/30/24 15:17 Dose: 800 mg Haloperidol (Haloperidol 5 Mg Tablet) 20 mg PO BEDTIME [facility] Last Admin: 12/29/24 20:58 Dose: 20 mg Haloperidol (Haloperidol 5 Mg Tablet) 10 mg PO DAILY [facility] Last Admin: 12/30/24 08:50 Dose: 10 mg Hydroxyzine HCl (Hydroxyzine Hcl 25 Mg Tablet) 25 mg PO Q6H PRN PRN Reason: mild anxiety Magnesium Hydroxide (Milk Of Magnesia 30 Ml Oral.Susp) 30 ml PO DAILY PRN PRN Reason: Constipation Nicotine Polacrilex (Nicotine Polacrilex 2 Mg Gum) 4 mg BUCCAL Q2H PRN PRN Reason: Nicotine Cravings Last Admin: 12/30/24 10:26 Dose: 4 mg Trazodone HCl (Trazodone Hcl 100 Mg Tablet) 100 mg PO BEDTIME [facility] Last Admin: 12/29/24 20:58 Dose: 100 mg Trazodone HCl (Trazodone Hcl 50 Mg Tablet) 50 mg PO BEDTIME MRX1 PRN PRN Reason: Insomnia Last Admin: 12/29/24 20:59 Dose: 50 mg Allergies Allergies Allergy/AdvReac Type Severity Reaction Status Date / Time fish derived [fish] Allergy Unknown Verified 12/25/24 14:08 Assessment & Plan Assessment & Plan (1) Psychotic disorder: Status: Acute Code(s): F29 - Unspecified psychosis not due to a substance or known physiological condition (2) Opioid use disorder, severe, on maintenance therapy: Status: Acute Code(s): F11.20 - Opioid dependence, uncomplicated (3) Alcohol use disorder, severe, in early remission: Status: Acute Code(s): F10.21 - Alcohol dependence, in remission Plan 12/27: continue home meds. allow for some time to consider options. discharge back to [facility] versus [place] once stable. 12/28: feeling much better. endorsing ongoing AH. denies SI. considering return to [facility]. continue current medications. 12/29: improved but depressed. increase wellbutrin to 450 mg daily at pt request. planning to discharge next wednesday back to [facility]. continue current mgmt otherwise. 12/30: Keeping to self. Observed reading in sensory room. Patient reports he feels his anxiety and depression are the same . guarded. encouraged to attend groups. He reports sleeping well last night. denies SI/HI/VH/AH. Continue current tx plan. Patient educated on: diagnosis, medication risk/benefits and therapeutic strategies Reason for continued inpatient stay Substantial Risk for: med/psych decompensation Time Spent With Patient Time: Total time managing care of this patient today _20___ minutes.
[2024-12-30 19:25] VITALS: BP 116/56; PULSE 68; RESP 16; TEMP 36.8; O2SAT 92
[2024-12-30] MEDS: HaloperidoL 5 MG TABLET 20 MG PO (21:20)
[2024-12-30] MEDS: traZODone HCL 100 MG TABLET PO (21:20)
[2024-12-31 07:42] VITALS: BP 133/75; PULSE 56; RESP 16; TEMP 36.8; O2SAT 96
[2024-12-31] MEDS: Gabapentin 400 MG CAPSULE 800 MG PO ×3 (08:22→21:06)
[2024-12-31] MEDS: clonazePAM 0.5 MG TABLET PO ×2 (08:22→16:57)
[2024-12-31] MEDS: chlorproMAZINE HCl 100 MG TABLET PO ×4 (08:23→21:06)
[2024-12-31] MEDS: HaloperidoL 5 MG TABLET 10 MG PO (08:23)
[2024-12-31] MEDS: buPROPion HCl XL 150 MG TAB.ER.24H 450 MG PO (08:23)
[2024-12-31] MEDS: Buprenorphine/Naloxone 8/2 mg FILM 1 FILM SUBLINGUAL ×2 (08:24→16:58)
--- NOTE | 2024-12-31 09:22 | P.PNPSI_ITS ---
Subjective Subjective Date of Service: 12/31/24 Reason For Visit: Psychosis Interim History: Keeping to self. Patient reports he continues to feel the same . guarded. Pt reports he is [facility] reading. denies SI/HI/VH/AH. Continue current tx plan. Medication Compliance: Yes Side effects from medications: No Attending Groups: No Mental Status Exam Mental Status Exam Patient Appearance: Appropriate Patient Orientation: Person, Place, Time and Situation Level of Consciousness: Awake Patient Behavior: Appropriate, Guarded and Good Eye Contact Mood Description: Calm Affect Description: Calm Ability to Follow Directions: Good Speech Pattern: Clear Memory Description: Intact Hallucinations: None Delusions: Not Present Thought Process: Intact Thought Content: positive for Intact Diagnostics Vital Signs (24Hr): Vital Signs - 24 hr 12/30/24 19:25 12/31/24 07:42 Temperature 98.2 F 98.3 F Pulse Rate 68 56 Respiratory Rate 16 16 Blood Pressure 116/56 L 133/75 Pulse Oximetry 92 96 Oxygen Delivery Method Room Air Room Air BMI result Body Mass Index 44.3 Labs 12/25/24 12:27 12/25/24 12:27 Medications Medications Current Medications Acetaminophen (Acetaminophen 325 Mg Tablet) 650 mg PO Q6H PRN PRN Reason: Headache/Pain, Scale 1-10 Al Hydroxide/Mg Hydroxide (Magnesium Hydrox/Alum Hydrox 30 Ml Oral.Susp) 30 ml PO Q6H PRN PRN Reason: Heartburn/Nausea Buprenorphine/Naloxone (Buprenorphine/Naloxone 8/2 Mg Film) 1 film SUBLINGUAL BID@0900,1700 [facility] Last Admin: 12/31/24 08:24 Dose: 1 film Bupropion HCl (Bupropion Hcl Xl 150 Mg Tab.Er.24h) 450 mg PO DAILY [facility] Last Admin: 12/31/24 08:23 Dose: 450 mg Chlorpromazine HCl (Chlorpromazine Hcl 100 Mg Tablet) 100 mg PO QID [facility] Last Admin: 12/31/24 08:23 Dose: 100 mg Clonazepam (Clonazepam 0.5 Mg Tablet) 0.5 mg PO BID@0900,1700 [facility] Last Admin: 12/31/24 08:22 Dose: 0.5 mg Clonidine HCl (Clonidine Hcl 0.1 Mg Tablet) 0.1 mg PO BID PRN PRN Reason: Anxiety Last Admin: 12/28/24 21:09 Dose: 0.1 mg Gabapentin (Gabapentin 400 Mg Capsule) 800 mg PO TID [facility] Last Admin: 12/31/24 08:22 Dose: 800 mg Haloperidol (Haloperidol 5 Mg Tablet) 20 mg PO BEDTIME [facility] Last Admin: 12/30/24 21:20 Dose: 20 mg Haloperidol (Haloperidol 5 Mg Tablet) 10 mg PO DAILY [facility] Last Admin: 12/31/24 08:23 Dose: 10 mg Hydroxyzine HCl (Hydroxyzine Hcl 25 Mg Tablet) 25 mg PO Q6H PRN PRN Reason: mild anxiety Magnesium Hydroxide (Milk Of Magnesia 30 Ml Oral.Susp) 30 ml PO DAILY PRN PRN Reason: Constipation Nicotine Polacrilex (Nicotine Polacrilex 2 Mg Gum) 4 mg BUCCAL Q2H PRN PRN Reason: Nicotine Cravings Last Admin: 12/30/24 10:26 Dose: 4 mg Trazodone HCl (Trazodone Hcl 100 Mg Tablet) 100 mg PO BEDTIME [facility] Last Admin: 12/30/24 21:20 Dose: 100 mg Trazodone HCl (Trazodone Hcl 50 Mg Tablet) 50 mg PO BEDTIME MRX1 PRN PRN Reason: Insomnia Last Admin: 12/29/24 20:59 Dose: 50 mg Allergies Allergies Allergy/AdvReac Type Severity Reaction Status Date / Time fish derived [fish] Allergy Unknown Verified 12/25/24 14:08 Assessment & Plan Assessment & Plan (1) Psychotic disorder: Status: Acute Code(s): F29 - Unspecified psychosis not due to a substance or known physiological condition (2) Opioid use disorder, severe, on maintenance therapy: Status: Acute Code(s): F11.20 - Opioid dependence, uncomplicated (3) Alcohol use disorder, severe, in early remission: Status: Acute Code(s): F10.21 - Alcohol dependence, in remission Plan 12/27: continue home meds. allow for some time to consider options. discharge back to [facility] versus [place] once stable. 12/28: feeling much better. endorsing ongoing AH. denies SI. considering return to [facility]. continue current medications. 12/29: improved but depressed. increase wellbutrin to 450 mg daily at pt request. planning to discharge next wednesday back to [facility]. continue current mgmt otherwise. 12/30: Keeping to self. Observed reading in sensory room. Patient reports he feels his anxiety and depression are the same . guarded. encouraged to attend groups. He reports sleeping well last night. denies SI/HI/VH/AH. Continue current tx plan. 12/31: continue current tx plan. Patient educated on: medication risk/benefits and therapeutic strategies Reason for continued inpatient stay Substantial Risk for: med/psych decompensation Time Spent With Patient Time: Total time managing care of this patient today _10___ minutes.
[2024-12-31 19:27] VITALS: BP 115/57; PULSE 62; RESP 16; TEMP 36.3; O2SAT 92
[2024-12-31] MEDS: traZODone HCL 100 MG TABLET PO (21:06)
[2024-12-31] MEDS: HaloperidoL 5 MG TABLET 20 MG PO (21:06)
[2024-12-31] MEDS: traZODone HCL 50 MG TABLET PO (21:06)
[2025-01-01 08:00] VITALS: BP 125/73; PULSE 74; RESP 16; TEMP 36.4; O2SAT 95
[2025-01-01] MEDS: Gabapentin 400 MG CAPSULE 800 MG PO ×3 (08:36→20:49)
[2025-01-01] MEDS: buPROPion HCl XL 150 MG TAB.ER.24H 450 MG PO (08:37)
[2025-01-01] MEDS: chlorproMAZINE HCl 100 MG TABLET PO ×4 (08:37→20:50)
[2025-01-01] MEDS: HaloperidoL 5 MG TABLET 10 MG PO (08:38)
[2025-01-01] MEDS: clonazePAM 0.5 MG TABLET PO ×2 (08:38→16:20)
[2025-01-01] MEDS: Buprenorphine/Naloxone 8/2 mg FILM 1 FILM SUBLINGUAL ×2 (08:39→16:21)
--- NOTE | 2025-01-01 08:50 | HO.PSYCHPN ---
Subjective Subjective Date of Service: 01/01/25 Reason For Visit: Psychosis Interim History: Keeping to self. guarded. Pt reports he is trying to finish this book before I leave ; not attending groups. staying in room. denies SI/HI/VH/AH. Continue current tx plan. Medication Compliance: Yes Side effects from medications: No Attending Groups: No Mental Status Exam Mental Status Exam Patient Appearance: Appropriate Patient Orientation: Person, Place, Time and Situation Level of Consciousness: Awake Patient Behavior: Appropriate, Guarded and Good Eye Contact Mood Description: Calm Affect Description: Calm Ability to Follow Directions: Good Speech Pattern: Clear Memory Description: Intact Hallucinations: None Delusions: Not Present Thought Process: Intact Thought Content: positive for Intact Diagnostics Vital Signs (24Hr): Vital Signs - 24 hr 12/31/24 19:27 01/01/25 08:00 Temperature 97.3 F 97.6 F Pulse Rate 62 74 Respiratory Rate 16 16 Blood Pressure 115/57 L 125/73 Pulse Oximetry 92 95 Oxygen Delivery Method Room Air Room Air BMI result Body Mass Index 44.3 Labs 12/25/24 12:27 12/25/24 12:27 Medications Medications Current Medications Acetaminophen (Acetaminophen 325 Mg Tablet) 650 mg PO Q6H PRN PRN Reason: Headache/Pain, Scale 1-10 Al Hydroxide/Mg Hydroxide (Magnesium Hydrox/Alum Hydrox 30 Ml Oral.Susp) 30 ml PO Q6H PRN PRN Reason: Heartburn/Nausea Buprenorphine/Naloxone (Buprenorphine/Naloxone 8/2 Mg Film) 1 film SUBLINGUAL BID@0900,1700 [facility] Last Admin: 01/01/25 08:39 Dose: 1 film Bupropion HCl (Bupropion Hcl Xl 150 Mg Tab.Er.24h) 450 mg PO DAILY [facility] Last Admin: 01/01/25 08:37 Dose: 450 mg Chlorpromazine HCl (Chlorpromazine Hcl 100 Mg Tablet) 100 mg PO QID [facility] Last Admin: 01/01/25 08:37 Dose: 100 mg Clonazepam (Clonazepam 0.5 Mg Tablet) 0.5 mg PO BID@0900,1700 [facility] Last Admin: 01/01/25 08:38 Dose: 0.5 mg Clonidine HCl (Clonidine Hcl 0.1 Mg Tablet) 0.1 mg PO BID PRN PRN Reason: Anxiety Last Admin: 12/28/24 21:09 Dose: 0.1 mg Gabapentin (Gabapentin 400 Mg Capsule) 800 mg PO TID [facility] Last Admin: 01/01/25 08:36 Dose: 800 mg Haloperidol (Haloperidol 5 Mg Tablet) 20 mg PO BEDTIME [facility] Last Admin: 12/31/24 21:06 Dose: 20 mg Haloperidol (Haloperidol 5 Mg Tablet) 10 mg PO DAILY [facility] Last Admin: 01/01/25 08:38 Dose: 10 mg Hydroxyzine HCl (Hydroxyzine Hcl 25 Mg Tablet) 25 mg PO Q6H PRN PRN Reason: mild anxiety Magnesium Hydroxide (Milk Of Magnesia 30 Ml Oral.Susp) 30 ml PO DAILY PRN PRN Reason: Constipation Nicotine Polacrilex (Nicotine Polacrilex 2 Mg Gum) 4 mg BUCCAL Q2H PRN PRN Reason: Nicotine Cravings Last Admin: 12/30/24 10:26 Dose: 4 mg Trazodone HCl (Trazodone Hcl 100 Mg Tablet) 100 mg PO BEDTIME [facility] Last Admin: 12/31/24 21:06 Dose: 100 mg Trazodone HCl (Trazodone Hcl 50 Mg Tablet) 50 mg PO BEDTIME MRX1 PRN PRN Reason: Insomnia Last Admin: 12/31/24 21:06 Dose: 50 mg Allergies Allergies Allergy/AdvReac Type Severity Reaction Status Date / Time fish derived [fish] Allergy Unknown Verified 12/25/24 14:08 Assessment & Plan Assessment & Plan (1) Psychotic disorder: Status: Acute Code(s): F29 - Unspecified psychosis not due to a substance or known physiological condition (2) Opioid use disorder, severe, on maintenance therapy: Status: Acute Code(s): F11.20 - Opioid dependence, uncomplicated (3) Alcohol use disorder, severe, in early remission: Status: Acute Code(s): F10.21 - Alcohol dependence, in remission Plan 12/27: continue home meds. allow for some time to consider options. discharge back to [facility] versus [place] once stable. 12/28: feeling much better. endorsing ongoing AH. denies SI. considering return to [facility]. continue current medications. 12/29: improved but depressed. increase wellbutrin to 450 mg daily at pt request. planning to discharge next wednesday back to [facility]. continue current mgmt otherwise. 12/30: Keeping to self. Observed reading in sensory room. Patient reports he feels his anxiety and depression are the same . guarded. encouraged to attend groups. He reports sleeping well last night. denies SI/HI/VH/AH. Continue current tx plan. 12/31: continue current tx plan. 01/01: continue current tx plan. Patient educated on: diagnosis, medication risk/benefits and therapeutic strategies Reason for continued inpatient stay Substantial Risk for: med/psych decompensation Time Spent With Patient Time: Total time managing care of this patient today _20___ minutes.
[2025-01-01] MEDS: Nicotine Polacrilex 2 MG GUM 4 MG BUCCAL ×2 (10:53→17:13)
[2025-01-01 20:00] VITALS: BP 106/62; PULSE 100; RESP 18; TEMP 36.4; O2SAT 97
[2025-01-01] MEDS: HaloperidoL 5 MG TABLET 20 MG PO (20:49)
[2025-01-01] MEDS: traZODone HCL 100 MG TABLET PO (20:50)
[2025-01-01] MEDS: traZODone HCL 50 MG TABLET PO (20:50)
[2025-01-02] MEDS: buPROPion HCl XL 150 MG TAB.ER.24H 450 MG PO (08:37)
[2025-01-02] MEDS: Gabapentin 400 MG CAPSULE 800 MG PO (08:37)
[2025-01-02] MEDS: HaloperidoL 5 MG TABLET 10 MG PO (08:37)
[2025-01-02] MEDS: chlorproMAZINE HCl 100 MG TABLET PO (08:37)
[2025-01-02] MEDS: Buprenorphine/Naloxone 8/2 mg FILM 1 FILM SUBLINGUAL (08:38)
[2025-01-02] MEDS: clonazePAM 0.5 MG TABLET PO (08:38)
[2025-01-02] MEDS: Nicotine Polacrilex 2 MG GUM 4 MG BUCCAL (09:35)
--- NOTE | 2025-01-02 11:03 | PM.PSYDC ---
DS: Providers Provider Date of Service: 01/02/25 Date of admission: 12/26/24 13:33 Date of discharge: 01/02/25 Primary care physician: Ralph Physician DS: Diagnosis Discharge Diagnosis (1) Psychotic disorder: Status: Acute (2) Opioid use disorder, severe, on maintenance therapy: Status: Acute (3) Alcohol use disorder, severe, in early remission: Status: Acute DS: Medications Discharge Medications Home Medications: Home Medications ?Medication ?Instructions ?Recorded ?Confirmed Haldol 20 mg PO BEDTIME 12/25/24 12/25/24 chlorpromazine 100 mg tablet 100 mg PO QID 12/25/24 12/25/24 clonazepam 0.5 mg tablet (Klonopin) 0.5 mg PO BID 12/25/24 12/25/24 clonidine 0.1 mg PO BID PRN Anxiety 12/25/24 12/25/24 gabapentin 800 mg tablet 800 mg TID 12/25/24 12/25/24 haloperidol 10 mg PO QAM 12/25/24 12/25/24 trazodone 100 mg tablet 100 mg PO BEDTIME 12/25/24 12/25/24 buprenorphine 8 mg-naloxone 2 mg 1 film buccal BID 12/26/24 12/26/24 sublingual film (Suboxone) Previous Rx's ?Medication ?Instructions ?Recorded bupropion HCl 150 mg 24 hr tablet, 450 mg (3 x 150 mg) PO DAILY 30 01/02/25 extended release days #90 tabs naloxone 4 mg/actuation nasal 4 mg intranasal Q2M PRN opioid 01/02/25 spray (Narcan) overdose 1 day #2 ea nicotine (polacrilex) 2 mg gum 4 mg buccal Q2H PRN Nicotine 01/02/25 Cravings 30 days #120 ea Mental Status Exam Mental Status Exam Narrative: obese, heavily tattooed. adequately groomed, in hospital [facility]. cooperative. no PMA/PMR. speech nml rate, decr amount, decr loudness, nml latency. thoughts linear and logical. affect constricted, normo-intense, non-labile. mood good. no SI/SIBI/HI/AVH. DS: Summary Hospital Course Hospital Course: per 12/27 admission note: HPI Narrative: per CARE team zion pt self-presented with CHD worker c/o worsening depression now with SI and for the past several days CAH screaming at him to kill himself. plan to hang self. has been at [facility] for the past 2.5 months. staff report he has been sleeping a lot and c/o AH. on interview with , pt reports his AH have improved quite substantially, now low and light, from screaming [employer]. last SI last NOC. meds reviewed, modified to pt's preference. continue home meds. pt just feels he needs a bit of time. not sure if he wants to return to [facility], 2.5 months into a 6 month stay, versus return to [place], where he lives. he will reflect while stabilizing inpatient. psych Hx reviewed. substantial trauma Hx noted, as well as h/o SIB. Past Psychiatric History: hosps: reports about 10 hosps SA: told CARE team he has tried to suicide a few times. 2023 via OD, 2022 via slitting his abd, requiring melanie. SIB: reports h/o cutting from 10 yo. MRE about 1 yr ago. outpt: at [facility] so seeing addi for meds right now. from [place], there he goes to [facility]. Medical Evaluation Reviewed: Yes COUNT INCLUDES THE [facility] Family History: father - bipolar Social History: born in [place], [place], raised in [place], [place], bby mother and father. reports mother sickly with DM and passed when he was 21 yo. Substance History: nicotine - 1.5 ppd alcohol - h/o use disorder, sober 5 months. opioid - h/o use disorder, sober 16 years. on suboxone. utox BUPE POS. Trauma History: reports phys, sex, emo trauma from childhood Precis: 12/27: continue home meds. allow for some time to consider options. discharge back to [facility] versus [place] once stable. 12/28: feeling much better. endorsing ongoing AH. denies SI. considering return to [facility]. continue current medications. 12/29: improved but depressed. increase wellbutrin to 450 mg daily at pt request. planning to discharge next wednesday back to [facility]. continue current mgmt otherwise. 12/30: Keeping to self. Observed reading in sensory room. Patient reports he feels his anxiety and depression are the same . guarded. encouraged to attend groups. He reports sleeping well last night. denies SI/HI/VH/AH. Continue current tx plan. 12/31: continue current tx plan. 01/01: continue current tx plan. 01/02: denies SI/HI/AVH. asking for discharge to [facility]. meds reviewed, reconciled, prescribed. discharged to [facility] as per plan. Time Spent with Patient Time attestation: Total time managing care of this patient today __35__ minutes. Discharge Plan Discharge Anticipated Discharge Date/Time: 01/02/25 13:00 Patient Disposition: Xfer Other Discharge Diagnosis: Psychotic Disorder NOS Alcohol Use Disorder Opioid Use Disorder Referrals: Dr. Sukhdev Crawford (Psychiatrist) [Other] - 1 Week (*Please follow up with Dr. Crawford for medication management. ) [facility] [Provider Group] - 1 Week (01-01-25 [facility] was added to patients chart. Please call [phone] to schedule your follow up appt within 7-10 days of discharge. No release or PCP on file.) Discharge Medications: New nicotine (polacrilex) 2 mg Gum 4 mg buccal Q2H PRN (Reason: Nicotine Cravings) 30 Days Qty: 120 0RF bupropion HCl 150 mg Tablet Extended Release 24 Hr 450 mg PO DAILY 30 Days Qty: 90 0RF naloxone [Narcan] 4 mg/actuation spray,non-aerosol 4 mg intranasal Q2M PRN (Reason: opioid overdose) 1 Days Qty: 2 0RF Rx Instructions: spray 1 dose into ONE nostril; alternate nostrils w each dose until help arrives Continued trazodone 100 mg Tablet 100 mg PO BEDTIME gabapentin 800 mg Tablet 800 mg TID haloperidol 10 mg 10 mg PO QAM Haldol 10 mg 20 mg PO BEDTIME chlorpromazine 100 mg Tablet 100 mg PO QID clonazepam [Klonopin] 0.5 mg Tablet 0.5 mg PO BID clonidine 0.1 mg 0.1 mg PO BID PRN (Reason: Anxiety) buprenorphine-naloxone [Suboxone] 8-2 mg Film 1 film BUCCAL BID Discontinued bupropion HCl [Wellbutrin XL] 300 mg Tablet Extended Release 24 Hr 300 mg PO QAM Discharge Orders: Discharge Order (Routine); Ordered 01/02/25 Ordered By: Manish Stephen Diet: Advance to usual diet Activity on Discharge: As tolerated Stand Alone Forms: Patient Portal Discharge page, Community Support Print Language: Unable To Collect Care Plan Goals: remain safe, stable, and sober in the outpatient treatment setting Health Concerns: none Plan of Treatment: take medications as prescribed, attend appointments as scheduled Assessment: not at imminent risk of harm to self or others Discharge Date/Time: 01/02/25 11:37
--- NOTE | 2025-01-02 11:51 | PC.NURSE ---
Patient engages easily. Reports he is ready for discharge. Reports he will go to [facility]. States mood is stable, denies depression or sadness, denies SI/HI plan or intent. Denies perceptual disturbances, no overt psychosis or expressed delusions. Denies A/V hallucinations. Reports it was helpful to be here. Discharge paperwork reviewed with patient reports understanding. Aware of follow up appointment to be scheduled. Reports no current PCP, information provided to obtain one through [facility]. Discharge medications reviewed with patient states I know my meds . All medication from pharmacy returned to patient. Hard copy RX explained and given to patient. Reports understanding. All belongings taken with patient. Crisis numbers provided to patient.
== END 2025-01-02 11:37 | disposition other institution (70) | DRG 751 ==
LOC: HO.ED 14:41 → HO.PADLT16 12-26 13:51
PROVIDERS: Physician Assistant Medical; Admitting Provider Psychiatry & Neurology Psychiatry; Emergency Provider Emergency Medicine; Visit Provider Psychiatry & Neurology Psychiatry
DX: F29 Unspecified psychosis not due to a substance or known physiological condition (principal); R45.851 Suicidal ideations; F17.210 Nicotine dependence, cigarettes, uncomplicated; F11.20 Opioid dependence, uncomplicated; F10.21 Alcohol dependence, in remission; Z71.6 Tobacco abuse counseling; Z62.810 Personal history of physical and sexual abuse in childhood; Z20.822 Contact with and (suspected) exposure to COVID-19; Z79.899 Other long term (current) drug therapy
CPT/HCPCS: 80053; 80143; 80179; 80307; 81001; 85025; 87635; 93005; 99285; S9485

== ENCOUNTER → 2024-12-25 11:50 | Outpatient (BNV) | payer OTHER, SELFPAY | PROVIDERS: Admitting Provider Psychiatry & Neurology Psychiatry; Emergency Provider Emergency Medicine; Visit Provider Internal Medicine Cardiovascular Disease | DX: R45.851 Suicidal ideations (principal) | CPT/HCPCS: 93010 ==

== ENCOUNTER → 2024-12-26 13:33 | Outpatient (BNV) | payer OTHER, SELFPAY | PROVIDERS: Admitting Provider Psychiatry & Neurology Psychiatry; Emergency Provider Emergency Medicine; Visit Provider Psychiatry & Neurology Psychiatry | DX: F29 Unspecified psychosis not due to a substance or known physiological condition (principal); F11.20 Opioid dependence, uncomplicated; F10.21 Alcohol dependence, in remission | CPT/HCPCS: 90792; 99231; 99232; 99239 ==